=== PATIENT | female | born 1965 | race Caucasian/White ===

== ENCOUNTER 2018-06-01 18:30 | Inpatient (IN) | payer SELFPAY ==
[~2018-06-01] VITALS: Ht 162.6 cm; Wt 95.9 kg
[~2018-06-01 18:30] MED LIST: ADULT LOW DOSE81 MG; GLUCOPHAGE XR500 MG PO; KONDREMUL2.5 ML/5 M PO; MAGNESIUM250 M1 PO; METFORMIN HCL500 MG PO; MIRAPEX0.125 MG PO; MOTRIN IB200 MG PO; MOTRIN600 MG PO; NORCO 10-325 T1 EACH PO; PERCOCET 5-3251 EACH PO; REQUIP0.25 MG PO; SENNA-DOCUSATE1 EAC1 PO; ZOCOR10 MG PO
[2018-06-01] MEDS ORDERED: GLIPIZIDE ER10 MG PO (18:53)
[2018-06-01] MEDS ORDERED: SIMVASTATIN10 MG PO (18:54)
[2018-06-01] MEDS ORDERED: COQ-1030 MG PO (18:54)
--- NOTE | 2018-06-02 00:19 | NUR ---
06/02/18 0019 Joycelyn Melvin PATIENT COUGHING (NONPRODUCTIVE). PATIENT INSTRUCTED TO BRACE HER ABDOMEN WHILE COUGHING. PATIENT LIFTS HEAD AND SURGICAL KATIE IS REMOVED.
--- NOTE | 2018-06-02 00:55 | NUR ---
REPORT RECEIVED FROM SOPHIA MCALLISTER AND FROM PACU,RN. PT IS ALERT AND ORIENTED X4, SPEECH CLEAR. PT DENIES PAIN OR SOB AND O2 SAT IS MAINTAINING IN HIGH 90'S ON 2LPNC. PT ASSESSMENT COMPLETED. PT GIVEN PILLOW AND WAS ENCOURAGED TO SPLING DURING ANY COUGHING OR CHANGE IN POSITION. INCISIONS ARE WELL APPROXIMATED, SMALL AMOUNT OF SEROSANGUINOUS DRAINAGE NOTED TO INCISION BELOW UMBILICUS BUT STERISTRIPS REMAIN INTACT, GUAZE DSG REPLACED WITH NEW GUAZE/TAPE. CALL LIGHT NAD FRESH WATER IN REACH.
--- NOTE | 2018-06-02 02:02 | NUR ---
PT REPORTS HAVING CHRONIC RESTLESS LEG SYMTOMS THAT PREVENT HER FROM SLEEPING AT NIGHT UNLESS SHE TAKES HER MIRIPEX 0.25MG X3TABS AT BEDTIME. DR ODONNELL CONSULTED REGARDING PT'S REQUEST AND NEW ORDER RECEIVED FOR MIRIPEX 0.25MG X3 TABS NOW AND QHS PO.
--- NOTE | 2018-06-02 05:07 | NUR ---
PT ASSISTED UP TO RESTROOM, PT AMBULATES WITH STEADY GAIT AND ONLY STANDBY ASSIST TO RESTROOM. PT VOIDS 900MLS OF CLEAR YELLOW URINE OUT AT THIS TIME. PT GIVEN DIET SPRITE PER REQUEST. PT DENIES SOB OR PAIN. INCISIONS REMAIN WELL APPROXIMATED WITH DRESSINGS CDI. CALL LIGHT IN REACH. NO FURTHER CONCERNS OR REQUESTS VOICED.
--- NOTE | 2018-06-02 08:05 | NUR ---
PATIENT IN BED, EYES CLOSED. SOPHIA SANDOVAL DID BLOOD SUGAR CHECK, PATIENT REFUSED BREAKFAST. CALL LIGHT IN REACH
--- NOTE | 2018-06-02 10:43 | NUR ---
VITALS AND I/OS CHARTED. CALL LIGHT IN REACH
--- NOTE | 2018-06-02 10:50 | NUR ---
PATIENT ON PHONE IN BED. VITALS AND I/OS CHARTED. CALL LIGHT IN REACH
--- NOTE | 2018-06-02 10:56 | NUR ---
PT HAS DENIED PAIN ALL MORING SO FAR THIS SHIFT. HAS BEEN UP TO THE BATHROOM, VOIDED AND BACK TO BED. PT REFUSED TO WEAR NICTOINE PATCH. ONLY WANTED COFFEE THIS AM BKF.
[2018-06-02] MEDS ORDERED: NICOTINE PATCH1 EAC1 TD (12:40)
[2018-06-02] MEDS ORDERED: IBUPROFEN600 MG PO (12:40)
[2018-06-02] MEDS ORDERED: OXYCODON-ACETA1 EAC2 PO (12:40)
[2018-06-02] MEDS ORDERED: MAPAP325 MG PO (12:41)
[2018-06-02] MEDS ORDERED: FLAX SEED OIL1000 MG PO (13:08)
[2018-06-02] MEDS ORDERED: ASPIR 8181 MG PO (13:09)
[2018-06-02] MEDS ORDERED: MULTIVITAMINS1 EAC7 PO (13:10)
--- NOTE | 2018-06-02 13:21 | NUR ---
PT ATE ALL OF HER LUNCH THIS NOON. VÍCTOR-WELL. DR ODONNELL INTO SEE PT AND DISCHARGE TO HOME.
--- NOTE | 2018-06-02 13:58 | NUR ---
PT DISCHARGE INSTRUCTIONS GIVEN TO PT AT THIS TIME, PT AND FAMILY UNDERSTOOD ALL INSTRUCTIONS. PT WILL BE TRANSPORTED VIA WC, TO [facility] DRIVING HER HOME. RX GIVEN AND ENCOURAGE TO SALES OPERATIONS ASSISTANT HER PAIN PILLS FOR INCREASED PAIN IN THE NIGHT.
--- NOTE | 2018-06-02 14:23 | NUR ---
PT DRESSED, AND READY FOR DC. FAMILY PRESENT TO "ESCORT" HER OUT. PT SEEMS ALERT AND ORIENTED. SOPHIA UNDERWOOD ARRIVED WITH CHAIR, PT WAVES GOOD BYE
--- NOTE | 2018-06-03 10:38 | OR ---
[facility] [address] [place], [place] [address] Signed DATE OF OPERATION: 06/02/2018 SURGEON: Tracy Odonnell MD TIME: 1208 a.m. PREOPERATIVE DIAGNOSES: 1. Acute appendicitis. 2. Morbid obesity and smoking. 3. Soft tissue mass of mesentery, proximal jejunum. POSTOPERATIVE DIAGNOSES: 1. Suppurative appendicitis, nonperforated. 2. Morbid obesity. PROCEDURES: 1. Laparoscopic exploration of abdomen, running of small bowel. 2. Laparoscopic appendectomy. ANESTHESIA: General endotracheal, Tracy aGrcia CRNA, and local 7 mL of 0.25% Marcaine with epinephrine. 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 She began having pain at about 2:00 p.m. today, presented to the emergency room where she was evaluated by Dr. Gabriel and found to have right lower abdominal tenderness. She is markedly obese. She does smoke. A CT scan of the abdomen was performed, confirming acute appendicitis. Incidentally noted was a 4 cm soft tissue mass of the left upper quadrant in the region of the mesentery, not far from the bowel wall itself. There was a nondescript 8 mm lesion of the right lobe of the liver. She has been fluid resuscitated, given antibiotics and so forth and is to undergo laparoscopy with excision of the acutely inflamed appendix, possible biopsy of the mesenteric mass resection depending on its appearance. Addressing the other lesion of the mesentery was of a secondary importance to the acute problem of acute appendicitis. The risks of bleeding, infection, need for open procedure and other unforeseen complications were reviewed with the patient and her daughter. They understand and wished to proceed. FINDINGS: Electronically Signed By: TRACY ODONNELL MD 06/03/18 1038 PATIENT NAME: ROGELIO RUVALCABA OPERATIVE REPORT DATE OF : 61 REPORT #: [id number] PHYSICIAN: TRACY ODONNELL MD PCP: DANIEL SMITH MD REPORT IS CONFIDENTIAL AND NOT TO BE RELEASED WITHOUT AUTHORIZATION [facility] [address] [place], [place] [address] Signed The patient is quite morbidly obese. The liver showed marked fatty infiltration. There was no sign of discrete lesion of the liver. The appendix was markedly inflamed and suppurative, but not perforated. There was no abscess proper. The small bowel was run from the terminal ileum more proximally. I did not see the offending lesion of the mesentery associated with the proximal jejunum, no other attempt was made to do so. Examination was somewhat impaired by her significant obesity. Additional evaluation and treatment of that mass will be forthcoming. DESCRIPTION OF PROCEDURE: The patient was brought to the operating room, given general endotracheal anesthetic. She was noted to have a fair amount of inflammatory secretions in the endotracheal tube related to recent upper respiratory infection that she was treated for. After satisfactory general endotracheal anesthesia and previous administration of antibiotics as well as application of sequential compression device stockings, the abdomen was then prepared with chlorhexidine solution and draped sterilely. An infraumbilical incision was made and using an open Magdiel cannula technique, the abdomen was entered without problem, allowing for placement of 0-Vicryl sutures and a Magdiel cannula. Pneumoperitoneum was achieved at a level of 14 mmHg of carbon dioxide gas. Intraabdominal inspection was undertaken showing some inflammatory fluid of the right lower abdomen. Two additional trocars were placed, one in the epigastric area allowing for placement of the laparoscope there and then another in the right lower quadrant. Manipulation of the cecum and the terminal ileum showed the terminal ileum to be normal. The appendix was easily visualized and found to be inflamed with a suppurative appearance. A window was created between the appendix and the mesoappendix, using an Endo-MARY stapling device, the base of the appendix was transected flushed with the cecum. The mesentery to the appendix was subsequently divided with Endo-MARY stapling device as well. Minimal amounts of electrocautery used along the staple line to assure complete hemostasis. Irrigation was undertaken. Good hemostasis was noted. The appendix was explanted through the trocar in the infraumbilical area. Sent for final pathology. The small bowel was then examined from the terminal ileum more proximally. Careful manipulation of bowel proximally as far as possible was undertaken; becoming progressively more awkward of course in the more proximal bowel. Table manipulation was undertaken to optimize evaluation, but I ran the bowel as far as possible, which was quite a long way, but I could not be assured of having reached the proximal jejunum. The omentum was quite heavy and draped over the abdominal viscera and despite table manipulation could not fully be mobilized out of the way and thus the offending 4-cm lesion could not be fully identified in any way. Electronically Signed By: TRACY ODONNELL MD 06/03/18 1038 PATIENT NAME: ROGELIO RUVALCABA OPERATIVE REPORT DATE OF : 61 REPORT #: [id number] PHYSICIAN: TRACY ODONNELL MD PCP: DANIEL SMITH MD REPORT IS CONFIDENTIAL AND NOT TO BE RELEASED WITHOUT AUTHORIZATION [place] [id number] Signed Further attempts at examining for the mesenteric lesion were abandoned. Reinspection of the lower abdomen was undertaken showing no sign of bleeding or other problems. Excess irrigation fluid was suctioned free. The trocars were removed under direct visualization showing no sign of bleeding. The infraumbilical fascial incision was reapproximated with interrupted 0-Vicryl suture. All wounds were copiously irrigated with saline solution. Skin closed with interrupted 3-0 Vicryl. Steri-Strips were applied. The patient was ultimately extubated and transferred to recovery room in good condition having suffered no complication. Sponge, needle, and instrument counts reported as correct x2. MD JASE Cano/MODL /[id number] cc: Dr. Nery Smith MD Copies: DANIEL SMITH MD ~ Electronically Signed By: TRACY ODONNELL MD 06/03/18 1038 PATIENT NAME: ROGELIO RUVALCABA OPERATIVE REPORT DATE OF : 61 REPORT #: [id number] PHYSICIAN: TRACY ODONNELL MD PCP: DANIEL SMITH MD REPORT IS CONFIDENTIAL AND NOT TO BE RELEASED WITHOUT AUTHORIZATION
--- NOTE | 2018-06-03 10:38 | HP ---
[facility] [address] [place], [place] [address] Signed ADMISSION DATE: 06/01/2018 REASON FOR ADMISSION: Acute appendicitis, incidental finding of mesenteric soft tissue mass, proximal jejunum. 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 She is a patient of Dr. Smith. Today at approximately 2:15, she began having right-sided abdominal pain, which has markedly worsened and now localized in the right lower abdomen. Evaluation by Dr. Gabriel showed her to have tenderness in the right lower quadrant, suggestive of appendicitis. A CT scan was obtained, confirming acute appendicitis. Additionally noted was a well-defined 4.3 cm soft tissue mass in the left small bowel mesentery with a small amount of calcification. She has had no symptoms related to that so far as could be told. Additionally, she has a small nonspecific enhancing focus in the right hepatic lobe, measuring 8 mm of some uncertain significance. The patient last ate at approximately 12:30 today. She has had no vomiting, but has had some amount of nausea. PAST MEDICAL HISTORY: Includes diabetes. CURRENT MEDICATIONS: Include: 1. Glipizide 2.5 mg tab p.o. daily. 2. Metformin 500 mg tablets, 2000 mg p.o. daily. 3. Additionally, she takes Mirapex 0.125 to 0.375 p.o. at bedtime. 4. Additionally takes simvastatin 5 mg p.o. daily. 5. CoQ10 30 mg daily. ALLERGIES: She has no known drug allergies. SOCIAL HISTORY: She is . 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 REVIEW OF SYSTEMS: She has no shortness of breath or chest pain. Denies dysphagia, dysuria. Has had no hematemesis or blood per rectum. Electronically Signed By: TRACY ODONNELL MD 06/03/18 [facility] PATIENT NAME: ORGELIO RUVALCABA HISTORY AND PHYSICAL DATE OF : 61 REPORT #: [id number] PHYSICIAN: TRACY ODONNELL MD PCP: DANIEL SMITH MD REPORT IS CONFIDENTIAL AND NOT TO BE RELEASED WITHOUT AUTHORIZATION [facility] [address] [place], [place] [address] Signed PHYSICAL EXAMINATION: GENERAL: Pleasant white woman, who looks to be mildly uncomfortable. HEENT: Mucous membranes were reasonably moist. Trachea is midline. She has no hoarseness. CHEST: Shows normal respiratory excursion without tachypnea. HEART: Regular. ABDOMEN: Obese, but soft. Rovsing sign is positive. She has tenderness in the right lower quadrant. EXTREMITIES: Show no clubbing, cyanosis, or edema. ASSESSMENT: I reviewed her CT scan in detail. The appendix is clearly abnormal, consistent with acute appendicitis. Soft tissue mass of the mesentery of the small bowel is also noted and a rim of calcification is noted on it as well. It is uncertain what that mass is, whether it might represent a carcinoid tumor or some other problem. However, her acute problem is actually the appendicitis for which operative intervention has been recommended. I think, it is unlikely that this would be an approach by a medical management (antibiotic) approach. Discussed the risks of bleeding, infection, need for open procedure rather than laparoscopic one and options of nonoperative management. She prefers to proceed to operation and we will additionally see if the mesenteric lesion can be localized. I would not anticipate it's resection on this occasion; however, it may ultimately be required or may be possible to do tonight anyway, it will depend on its findings. Further evaluation is to assess for carcinoid or other neoplastic process may be a consideration; this depends on the appearance of the lesion in that operation. MD JASE Cano/MODL /[id number] cc: MD Josias Best MD Electronically Signed By: TRACY ODONNELL MD 06/03/18 1038 PATIENT NAME: ROGELIO RUVALCABA HISTORY AND PHYSICAL DATE OF : 61 REPORT #: [id number] PHYSICIAN: TRACY ODONNELL MD PCP: DANIEL SMITH MD REPORT IS CONFIDENTIAL AND NOT TO BE RELEASED WITHOUT AUTHORIZATION [facility] [address] [place], [place] [address] Signed Copies: DANIEL SMITH MD, SHELDON MD ~ Electronically Signed By: TRACY ODONNELL MD 07/11/18 1038 PATIENT NAME: ROGELIO RUVALCABA HISTORY AND PHYSICAL DATE OF : 61 REPORT #: [id number] PHYSICIAN: TRACY ODONNELL MD PCP: DANIEL SMITH MD REPORT IS CONFIDENTIAL AND NOT TO BE RELEASED WITHOUT AUTHORIZATION
== END 2018-06-02 14:00 | disposition home or self-care (01) | DRG 343 ==
LOC: ED 18:30 → MS 21:33
PROVIDERS: ADMIT Surgery
PROC: 0DJD4ZZ Inspection of Lower Intestinal Tract, Percutaneous Endoscopic Approach (ICD-10-PCS; 2018-06-01)
PROC: 0DTJ4ZZ Resection of Appendix, Percutaneous Endoscopic Approach (ICD-10-PCS; principal; 2018-06-01 22:37)
DX: K35.80 Unspecified acute appendicitis (principal); K63.9 Disease of intestine, unspecified; E66.01 Morbid (severe) obesity due to excess calories; E11.9 Type 2 diabetes mellitus without complications; E78.5 Hyperlipidemia, unspecified; F17.200 Nicotine dependence, unspecified, uncomplicated; K76.0 Fatty (change of) liver, not elsewhere classified; Z68.36 Body mass index [BMI] 36.0-36.9, adult; Z79.84 Long term (current) use of oral hypoglycemic drugs; Z79.899 Other long term (current) drug therapy
CPT/HCPCS: 00840; 74177; 80053; 81001; 83690; 85025; 96361; 96374; 96375; 96376; 99285; 99406; J0330; J0694; J1100; J1644; J1815; J1885; J2250; J2270; J2405; J2704; J2765; J3010; J7030; J7120; Q9967

== ENCOUNTER 2019-10-31 21:29 | Emergency (ER) | payer OTHER ==
[~2019-10-31] VITALS: Ht 162.6 cm; Wt 87.5 kg
[~2019-10-31 21:29] MED LIST changes: +ASPIR 8181 MG PO; +COQ-1030 MG PO; +FLAX SEED OIL1000 MG PO; +GLIPIZIDE ER10 MG PO; +IBUPROFEN600 MG PO; +MAPAP325 MG PO; +MULTIVITAMINS1 EAC7 PO; +NICOTINE PATCH1 EAC1 TD; +OXYCODON-ACETA1 EAC2 PO; +SIMVASTATIN10 MG PO
[2019-10-31] MEDS ORDERED: PROBIOTIC1 EAC1 PO (22:43)
[2019-10-31] MEDS ORDERED: TRAMADOL HCL50 MG PO (23:30)
== END 2019-10-31 23:42 | disposition home or self-care (01) ==
LOC: ED 21:29
DX: M77.9 Enthesopathy, unspecified (principal); E11.9 Type 2 diabetes mellitus without complications; E78.5 Hyperlipidemia, unspecified; F17.200 Nicotine dependence, unspecified, uncomplicated; Z79.899 Other long term (current) drug therapy; Z79.84 Long term (current) use of oral hypoglycemic drugs; Z79.82 Long term (current) use of aspirin
CPT/HCPCS: 73110; 99283-25

== ENCOUNTER 2023-06-16 11:52 | Day surgery (SDC) | payer BC ==
[~2023-06-16] VITALS: Ht 162.6 cm; Wt 85.5 kg
--- NOTE | ~2023-06-16 | OR ---
[facility] [address] [place], [place] [address] Draft DATE OF OPERATION: 06/16/2023 SURGEON: Tracy Odonnell MD PREOPERATIVE DIAGNOSES: 1. History of tubular adenoma of cecum 2014. 2. Complaints of external hemorrhoidal disease. POSTOPERATIVE DIAGNOSES: 1. Small polyp of sigmoid (resected). 2. Internal and external hemorrhoidal changes. PROCEDURE: Total colonoscopy to cecum with cold morcellation polypectomy x1. ANESTHESIA: Intravenous sedation; fentanyl 150 mcg and Versed 8 mg. INDICATION: This 58-year-old white woman is a patient of Daniel Smith MD. She underwent colonoscopy last in 2014, at which time she had a tubular adenoma of the cecum and a polypoid-like abnormality at 15 cm. She currently is asymptomatic, though she does have bothersome external hemorrhoid mostly related to perianal hygiene. She is admitted at this time to undergo colonoscopy for surveillance regarding prior polyps. She understands the risk of bleeding, infection, and perforation related to colonoscopy and wished to proceed. FINDINGS: The prep was good. Complete colonoscopy was undertaken with visualization of the cecum. External hemorrhoidal change was noted as well as some internal hemorrhoidal disease. She had a small polyp of the sigmoid, which was excised. DESCRIPTION OF PROCEDURE: The patient was brought to the endoscopy suite and placed in the lateral decubitus position, given intravenous sedation to the point of slurred speech and nystagmus. Full cardiopulmonary monitoring was undertaken. Digital rectal examination showed an external hemorrhoidal area. The Olympus video colonoscope was placed in the rectum and manipulated throughout the colon. Additional sedation was given as needed. Ultimately, the scope passed to the right colon with visualization of the cecum. Various maneuvers did not allow full intubation of the cecum, but morcellation biopsy device was used to PATIENT NAME: ROGELIO RUVALCABA OPERATIVE REPORT DATE OF : 61 REPORT #: [id number] PHYSICIAN: TRACY ODONNELL MD PCP: DANIEL SMITH MD REPORT IS CONFIDENTIAL AND NOT TO BE RELEASED WITHOUT AUTHORIZATION [facility] [address] [place], [place] [address] Draft elevate the mucosa of the cecum to assure there was no sign of residual or recurrent polyp. There was none. The scope was then withdrawn and examination throughout showed no sign of abnormality until the sigmoid where a small polyp was noted. It was very small indeed and was completely excised with cold morcellation technique. Further withdrawal for retroflexed view of the rectum, which confirmed a dominant internal hemorrhoid. Scope was straightened, withdrawn and external hemorrhoid identified as well. The patient was taken to the recovery room in good condition. CONCLUDING DIAGNOSIS: Small polyp, excised. PLAN: Recommend repeat colonoscopy in 5 years, sooner if clinically indicated. If she should have desire for removal of external hemorrhoid or problems with the internal hemorrhoids, specifically bleeding, she will let me know at which point we will proceed. MD JASE Cano/HERBERT /[id number] cc: Daniel Smith MD Copies: DANIEL SMITH MD ~ PATIENT NAME: ROGELIO RUVALCABA OPERATIVE REPORT DATE OF : 61 REPORT #: [id number] PHYSICIAN: TRACY ODONNELL MD PCP: DANIEL SMITH MD REPORT IS CONFIDENTIAL AND NOT TO BE RELEASED WITHOUT AUTHORIZATION
[~2023-06-16 11:52] MED LIST changes: +PROBIOTIC1 EAC1 PO; +TRAMADOL HCL50 MG PO
[2023-06-16 12:10] VITALS: BP 112/70
[2023-06-16] MEDS ORDERED: OZEMPIC0.25 MG/0. SQ (12:13)
--- NOTE | 2023-06-16 13:52 | NUR ---
06/16/23 1352 Mer[facility] Gonzalez 1350-PT TO PACU IN LL POSITION. EYES CLOSED. PT RESPONDS TO VERBAL AND TACTILE STIMULI. DENIES PAIN AND NAUSEA. BREATHING EASY AND UNLABORED. SPO2 >95% ON 3 L O2 VIA NC. PT ENCOURAGED TO PASS GA.
[2023-06-16 14:50] VITALS: BP 117/63
[2023-06-16 15:45] VITALS: BP 113/73
--- NOTE | 2023-06-16 15:50 | NUR ---
1450: PT RETURNS TO DAY SURGERY FROM PACU FOR EXTENDED RECOVERY D/T DESATURATIONS WHILE AT REST. VSS, RESP EVEN AND UNLABORED. HOLDS APPROPRIATE CONVERSATION. ICE WATER PROVIDED AT REQUEST. DENIES PAIN AND NAUSEA. O2 SATS DROP TO 76% WHILE AT REST. WHEN AROUSED SATS QUICKLY RETURN TO BASELINE. DISCUSSED THE PRESENCE OF SLEEP APNEA WITH PT AND PT ENCGD TO HAVE SLEEP STUDY PERFORMED PREVIOUSLY DISCUSSED. PT VOICES UNDERSTANDING 1545: NO RECENT DESATURATIONS. VSS, RESP EVEN AND UNLABORED. O2 SAT REMAINS >96% ON RA. PT AWAKE AND ALERT USING CELL PHONE. DANGLES AT THE BEDSIDE, VÍCTOR WELL. DENIES DIZZINESS AND SOB. TO DRESS INDEPENDENTLY FOR DC
--- NOTE | 2023-06-16 16:52 | NUR ---
1605: PT WHEELED OFF OF UNIT AT THIS TIME FOR DC. NO PHYSICAL S/S OF DISTRESS AT THIS TIME
--- NOTE | 2023-06-19 18:02 | PATH ---
[facility] [address] [facility] [place], [place] [address] Signed SPECIMEN(S): A SIGMOID POLYP SPECIMEN SOURCE: A. SIGMOID POLYP CLINICAL HISTORY: Colonoscopy. History of tubular adenoma in 2014. Postop: Polyp x 1; internal and external hemorrhoids FINAL PATHOLOGIC DIAGNOSIS: Sigmoid polyp: - Most suggestive of hyperplastic polyp (fragments). - Negative for dysplasia. NA:emh:C2NR MICROSCOPIC EXAMINATION: Histologic sections of all submitted blocks are examined by light microscopy. These findings, together with the gross examination, support the pathologic diagnosis. GROSS DESCRIPTION: The specimen, labeled and designated "Brad, 1" and designated on the requisition "sigmoid polypectomy," is received in formalin and consists of four vargas soft tissue fragments, ranging from 0.2 to 0.3 cm. Entirely submitted in (A1). AC (under the direct supervision of a pathologist) The Gross Description was prepared using a voice recognition system. The report was reviewed for accuracy; however, sound-alike word errors, addition and/or deletions may occur. If there is any question about this report, please contact Client Services. PERFORMING LABORATORY: Technical component was performed by [facility], [address] [place] [id number] (CLIA# [id number]). Professional interpretation was performed by [facility], [address] [place] [id number] (CLIA# [id number]). Diagnostician: Morales Hdz MD Pathologist Electronically Signed 06/19/2023 PATIENT NAME: ROGELIO RUVALCABA PATHOLOGY DATE OF : 61 REPORT #: [id number] PHYSICIAN: J[facility]ANITO PATHOLOGY PCP: DANIEL STEWART MD REPORT IS CONFIDENTIAL AND NOT TO BE RELEASED WITHOUT AUTHORIZATION [address] [address] Signed Copies: ~ PATIENT NAME: ROGELIO RUVALCABA PATHOLOGY DATE OF : 61 REPORT #: [id number] PHYSICIAN: JUANITO PATHOLOGY PCP: DANIEL STEWART MD REPORT IS CONFIDENTIAL AND NOT TO BE RELEASED WITHOUT AUTHORIZATION
== END 2023-06-16 16:05 | disposition home or self-care (01) ==
LOC: OPS 11:52 → DS 11:52 → OPS 13:00 → DS 13:00 → OPS 16:05
PROVIDERS: ATTEND Surgery
PROC: 0DBN8ZX Excision of Sigmoid Colon, Via Natural or Artificial Opening Endoscopic, Diagnostic (ICD-10-PCS; principal; 2023-06-16 13:00)
DX: Z12.11 Encounter for screening for malignant neoplasm of colon (principal); K63.5 Polyp of colon; K64.4 Residual hemorrhoidal skin tags; K64.8 Other hemorrhoids; E11.9 Type 2 diabetes mellitus without complications; F17.200 Nicotine dependence, unspecified, uncomplicated; Z86.010 Personal history of colon polyps; Z90.49 Acquired absence of other specified parts of digestive tract; Z79.84 Long term (current) use of oral hypoglycemic drugs
CPT/HCPCS: 99153; G0500; J2250; J3010; J7121